=== PATIENT | female | born 1955 | race Caucasian/White ===

== ENCOUNTER → 2023-04-13 16:05 | Outpatient (REF) | payer OTHER, SELFPAY | LOC: PAVMRI 16:05 | PROVIDERS: ATTENDING PHYSICIAN Student in an Organized Health Care Education/Training Program; FAMILY PHYSICIAN Internal Medicine | DX: M54.12 Radiculopathy, cervical region (principal); M54.14 Radiculopathy, thoracic region | CPT/HCPCS: 72141; 72146 ==

== ENCOUNTER → 2023-05-30 10:18 | Outpatient (REF) | payer OTHER, SELFPAY | LOC: MRI 3T 10:18 | PROVIDERS: ATTENDING PHYSICIAN Orthopaedic Surgery; FAMILY PHYSICIAN Internal Medicine | DX: M25.511 Pain in right shoulder (principal) | CPT/HCPCS: 73221 ==

== ENCOUNTER → 2023-07-16 18:01 | Outpatient (REF) | payer OTHER, SELFPAY | LOC: PAVMRI 18:01 | PROVIDERS: ATTENDING PHYSICIAN Orthopaedic Surgery; FAMILY PHYSICIAN Internal Medicine | DX: M25.561 Pain in right knee (principal) | CPT/HCPCS: 73721 ==

== ENCOUNTER → 2023-07-19 06:35 | Day surgery (SDC) | payer OTHER, SELFPAY | LOC: GI 06:35 | PROVIDERS: ATTENDING PHYSICIAN Internal Medicine Gastroenterology | DX: K63.5 Polyp of colon (principal); K57.30 Diverticulosis of large intestine without perforation or abscess without bleeding; K64.8 Other hemorrhoids; R19.7 Diarrhea, unspecified | CPT/HCPCS: 45380; 88305 ==

== ENCOUNTER 2023-08-31 09:58 | Outpatient (RCR) | payer OTHER, SELFPAY | END 2023-08-31 23:59 | disposition home or self-care (01) | LOC: RPT 09:58 | PROVIDERS: ATTENDING PHYSICIAN Internal Medicine Gastroenterology; FAMILY PHYSICIAN Internal Medicine | DX: N39.3 Stress incontinence (female) (male) (principal); N39.41 Urge incontinence; R27.8 Other lack of coordination; M62.81 Muscle weakness (generalized); Z73.6 Limitation of activities due to disability | CPT/HCPCS: 97014; 97112; 97140; 97162; 97530 ==

== ENCOUNTER 2023-09-21 10:12 | Outpatient (RCR) | payer OTHER, SELFPAY | END 2023-09-21 23:59 | disposition home or self-care (01) | LOC: RPT 10:12 | PROVIDERS: ATTENDING PHYSICIAN Internal Medicine Gastroenterology; FAMILY PHYSICIAN Internal Medicine | DX: N39.3 Stress incontinence (female) (male) (principal); N39.41 Urge incontinence; R27.8 Other lack of coordination; M62.81 Muscle weakness (generalized); Z73.6 Limitation of activities due to disability | CPT/HCPCS: 97014; 97112; 97530 ==

== ENCOUNTER 2023-10-12 02:32 | Emergency (ER) | payer OTHER, SELFPAY ==
[2023-10-12 02:32] VITALS: BMI 27.2
--- NOTE | 2023-10-12 02:34 | ED.GENMED ---
History of Present Illness
General
Chief Complaint: Chest Pain
Time Seen by Provider: 10/12/23 02:34
History of Present Illness
History of Present Illness:
HPI: The patient was awakened by chest discomfort. She describes it as an ache. This is also described as a burning sensation and somewhat of a pressure. She has not had any chest discomfort over the last few days. She has not had any exertional
symptoms. Her symptoms lasted for about half hour. She did not think it was necessarily heartburn related although she did start having heartburn this past year. She never broke out in a sweat and did not have any shortness of breath. She had an
unremarkable stress test last year. She has done Dr. Saini and takes Eliquis and flecainide for A-fib.
EXAM:
GENERAL: Well appearing in no distress
HEENT: Moist oral mucosa
CARDIOVASCULAR: No murmurs, normal heart rate, regular rhythm, No chest wall tenderness
PULMONARY: No respiratory distress, breath sounds are clear and equal
ABDOMEN: Soft with no peritoneal signs, no tenderness
NEUROLOGIC: Excellent strength all extremities, no coordination deficits
PSYCHIATRIC: Appropriate mental status, normal insight and judgement
EXTREMITIES: Nontender, no edema, moves all extremities equally
SKIN: No rash, no lesions
TIME OF INITIAL ENCOUNTER: 2:45 AM
NUMBER AND COMPLEXITY OF PROBLEMS ADDRESSED AT THE ENCOUNTER
� Chronic conditions affecting care: Atrial fibrillation on Eliquis
� Acute Exacerbation and/or Progression of Chronic Illness: This is an acute problem
� Differential Diagnosis includes: Noncardiac chest pain, anxiety, musculoskeletal chest wall pain, ACS
AMOUNT AND/OR COMPLEXITY OF DATA TO BE REVIEWED AND ANALYZED
� I performed an independent evaluation of and my interpretation is:
EKG: Sinus 82, normal axis, nonspecific ST abnormality, no significant change in comparison to 07/14/2018
CT:
X-rays: Chest x-ray unremarkable
Laboratory Studies: CBC normal, chemistries unremarkable, initial troponin less than 0.012. Troponin was drawn 3 hours after symptoms started which was unchanged.
Other:
� Review of other/old records: In March 2022 the patient had an inconclusive EKG but normal perfusion with no fixed or reversible defects seen.
� Clinical information was obtained by an independent historian: EMS
� Prescriptions/Medications Considered but not given:
� Further testing considered but not performed:
RISK OF COMPLICATIONS AND/OR MORBIDITY OR MORTALITY OF PATIENT MANAGEMENT
� Social determinants of health affecting care: Lives at home
� Discussion with other providers:
� Escalation of care including admission/observation vs risk of discharge considered: 2 troponins obtained. Throughout her stay in the ED without any intervention, she spontaneously feels improved. She does not feel that she
needs to stay here in the hospital. She is known to Dr. Saini. On reassessment at 5 AM, the patient has no further symptoms. She wants to go home. I still encouraged her to follow-up with cardiology.
Past History
Past History
ED Past Medical History: Arrthythmia, Hypothyroidism, Other and Other
ED Past Surgical History: Gynecological
Social History
Tobacco: Non-smoker
Alcohol: Occasional
Drug: None
Personal: Single
Family History
Family History: Diabetes and Other
Phy Exam
Physical Exam
Physical Exam:
See HPI
Scores
Heart Score for Chest Pain Patients
STEMI patient?: No
History: Slightly or Non-Suspicious
ECG: Normal
Age: >/= 65 years
Risk Factors: No Risk Factors
Troponin: </= Normal Limit
Heart Score for Chest Pain Patients: 2
Heart Score Risk: 2.5% MACE over next 6 weeks
Course
Orders/Labs/Results
Orders:
Orders
10/12/23 02:34
Electrocardiogram (*1) Urgent
Reason for Study: Chest Pain
Cardiac Monitoring- Treatment ONCE
EKG- Treatment ONCE
IV Insert/Care/Rem.- Treatment PRN
O2 Therapy [RESP] Urgent
Titrate/Wean O2 to maintain O2 sat greater than (%): 90
Special Instructions: Maintain sats >/=90%
Pulse Ox/spot Check [RESP] Urgent
Quantity: 1
Special Instructions: ON ROOM AIR
10/12/23 02:38
Complete Blood Count/With Diff Urgent
Comprehensive Metabolic Panel Urgent
Troponin I Urgent
10/12/23 02:53
CR Chest - 2 Views Urgent
Comment:
Reason For Exam: cp
10/12/23 03:26
Prochlorperazine [Compazine] 10 mg IV NOW STA
10/12/23 03:27
Prochlorperazine [Compazine] 10 mg .ROUTE .STK-MED ONE
10/12/23 04:30
Troponin I Urgent
Abnormal Lab Results
10/12/23
02:38
MCV 79.4 L fL
(81.0-99.0)
MCH 26.8 L pg
(27.0-31.0)
MPV 11.7 H fL
(7.4-10.4)
Absolute Monos (auto) 0.7 H 10^3/uL
(0.1-0.6)
Chloride 111 H mmol/L
(98-107)
Glucose 104 H mg/dl
(70-99)
10/12/23 02:38
10/12/23 02:38
Vital Signs
Initial and Last Documented VS:
Initial Vital Signs
Pulse Resp BP Pulse Ox
81 18 128/73 97
10/12/23 02:35 10/12/23 02:35 10/12/23 02:35 10/12/23 02:35
Last Documented Vital Signs
Pulse Resp BP Pulse Ox
80 22 124/69 96
10/12/23 04:30 10/12/23 04:30 10/12/23 04:00 10/12/23 04:30
*Critical Care Note
Total Time (30-74mins, 75-104mins- exclusive of procedures): Not Applicable
ED Attending Note
-
Portions of this chart may have been created with voice recognition software.� Occasional wrong word or��sound alike� substitutions may have occurred due to the inherent limitations of voice recognition software.
Discharge Plan
Departure
Patient Disposition: Home (Routine Discharge)
Date of Disposition: 10/12/23
Time of Disposition: 05:06
Patient with high blood pressure during this ER visit?: Yes
Discharge Problem:
Chest pain
Instructions: Chest Pain CBC Follow Up
Prescriptions:
No Action
levothyroxine 25 MCG tablet
25 mcg PO DAILY
aspirin 81 MG tablet,chewable
81 mg PO DAILY Qty: 0 0RF
verapamil 180 MG capsule,ext rel. pellets 24 hr
180 mg PO PRN PRN (Reason: vertigo)
flecainide 50 MG tablet
50 mg PO BID
ciprofloxacin HCl [Cipro] 500 MG tablet
500 mg PO Q12 Qty: 19 0RF
metronidazole 500 MG tablet
500 mg PO Q8 Qty: 29 0RF
Referrals:
Alis Farfan MD [Family Provider] -
Francesco Saini MD [Active] - Next open appointment
Activity Restrictions/Additional Instructions:
Cardiac testing shows no sign of heart attack however you still should follow-up with Dr. Saini for reassessment and further evaluation in case the symptoms still could be coming from your heart. Return here if worse.
Interventions
Interventions:
*General Assessment Last Done: 10/12/23 03:03
*Neglect/Abuse Screening Last Done: 10/12/23 03:03
*ED COVID-19 Vaccine History Last Done: 10/12/23 03:03
ED- Cardiac Assessment Last Done: 10/12/23 03:03
Discharge Date and Time
Print Language: [id number]
[2023-10-12 02:35] VITALS: BP 128/73
[2023-10-12 02:36] VITALS: BP 128/73
[2023-10-12 02:47] LABS: % Basophils 0.4 % (0-2); % Eosinophils 4.3 % (0-6); % Immature Granulocytes 0.3 % (0-0.5); % Lymphocytes 28.6 % (20.5-51.1); % Neutrophils 59.4 % (42.2-75.2); Absolute Eosinophils 0.4 10^3/uL (0-0.7); Absolute Lymphocytes 2.7 10^3/uL (1.2-3.4); Absolute Monocytes 0.7 10^3/uL (0.1-0.6); Absolute Neutrophils 5.7 10^3/uL (1.4-6.5); Hematocrit 39.4 % (37.0-47.0); Hemoglobin 13.3 g/dL (12.0-16.0); Mean Corp Hgb Conc. 33.8 g/dL (33.0-37.0); Mean Corpuscular Hgb 26.8 pg (27.0-31.0); Mean Corpuscular Volume 79.4 fL (81.0-99.0); Mean Platelet Volume 11.7 fL (7.4-10.4); Nucleated Red Blood Cells % 0 %; Platelet Count 214 10^3/uL (130-400); Red Blood Cell Count 4.96 10^6/uL (4.20-5.40); White Blood Cell Count 9.6 10^3/uL (4.8-10.8)
[2023-10-12 03:08] LABS: ALT (SGPT) 12 U/L (0-35); AST (SGOT) 20 U/L (14-36); Alkaline Phosphatase 76 U/L (38-126); Blood Urea Nitrogen 15 mg/dl (7-17); Calcium 9.8 mg/dl (8.4-10.2); Carbon Dioxide 23 mmol/L (22-30); Chloride 111 mmol/L (98-107); Estimated Creatinine Clearance 85 ml/min; Glucose 104 mg/dl (70-99); Potassium 3.6 mmol/L (3.5-5.1); Sodium 140 mmol/L (135-145); Total Bilirubin 0.5 mg/dl (0.2-1.3); Total Protein 6.5 g/dl (6.3-8.2); eGFR > 60.00
[2023-10-12 03:20] LABS: Troponin I < 0.012 ng/ml
[2023-10-12 03:25] VITALS: BP 128/72
[2023-10-12] MEDS: COMPAZINE 10 MG IV (03:30)
[2023-10-12 04:00] VITALS: BP 124/69
[2023-10-12 05:00] VITALS: BP 115/71
[2023-10-12 05:00] LABS: Troponin I < 0.012 ng/ml
== END 2023-10-12 05:42 | disposition home or self-care (01) ==
LOC: EMR 02:32
PROVIDERS: EMERGENCY PHYSICIAN Emergency Medicine; FAMILY PHYSICIAN Internal Medicine
DX: R07.89 Other chest pain (principal)
CPT/HCPCS: 99285; 96374; 71046; 80053; 84484; 85025; 93005

== ENCOUNTER → 2024-06-03 10:40 | Outpatient (REF) | payer OTHER, SELFPAY | LOC: PAVMRI 10:40 | PROVIDERS: ATTENDING PHYSICIAN Psychiatry & Neurology Neurology; FAMILY PHYSICIAN Internal Medicine; REFERRING PHYSICIAN Internal Medicine Cardiovascular Disease | DX: G31.84 Mild cognitive impairment of uncertain or unknown etiology (principal) | CPT/HCPCS: 70551 ==